=== PATIENT | female | born 1985 | race Caucasian/White ===

== ENCOUNTER 2019-06-11 21:17 | Emergency (ER) | payer SELFPAY ==
[~2019-06-11] VITALS: Ht 165.1 cm; Wt 69.5 kg
[2019-06-11 21:34] VITALS: Ht 165.1 cm; Wt 69.5 kg
[2019-06-12 01:50] VITALS: BP 134/76; PULSE 77; RESP 16
== END 2019-06-12 01:50 | disposition home or self-care (01) ==
LOC: FTE 21:17
DX: N89.8 Other specified noninflammatory disorders of vagina (principal); I10 Essential (primary) hypertension; F17.210 Nicotine dependence, cigarettes, uncomplicated
CPT/HCPCS: 81001; 81025; 87081; 87086; 87210; 87591; 99284